=== PATIENT | female | born 1950 ===

== ENCOUNTER 2022-04-29 18:33 | Observation (INO) | payer OTHER ==
[~2022-04-29] VITALS: Ht 152.4 cm; Wt 57.6 kg
[2022-04-29] MEDS ORDERED: ZONI100 PO (18:55)
[2022-04-29] MEDS ORDERED: Depakote125 MG PO (18:55)
[2022-04-29] MEDS ORDERED: PROLIA60 MG/1 ML SQ (18:56)
[2022-04-29] MEDS ORDERED: TRAZ50 PO (18:56)
[2022-04-29 20:53] LABS: BASOPHILS ABSOLUTE AUTO 0.02 K/mm3 (0.00-0.23); BASOPHILS PERCENT AUTO 0 % (0-2); EOSINOPHILS ABSOLUTE AUTO 0.08 K/mm3 (0.00-0.68); EOSINOPHILS PERCENT AUTO 1 % (0-6); Hematocrit 43.3 % (33.0-51.0); Hemoglobin 14.9 g/dL (11.5-16.0); IMMATURE GRAN ABSOLUTE AUTO 0.02 K/mm3 (0.00-0.10); IMMATURE GRAN PERCENT AUTO 0 % (0-1); LYMPHOCYTES ABSOLUTE AUTO 2.04 K/mm3 (0.84-5.20); LYMPHOCYTES PERCENT AUTO 24 % (21-46); MONOCYTES ABSOLUTE AUTO 0.67 K/mm3 (0.16-1.47); MONOCYTES PERCENT AUTO 8 % (4-13); Mean Corpuscular HGB 31.6 pg (26.0-34.0); Mean Corpuscular HGB Conc 34.4 g/dL (31.5-36.5); Mean Corpuscular Volume 92 fL (80-100); Mean Platelet Volume 10.5 fL (9.1-12.4); NEUTROPHILS ABSOLUTE AUTO 5.62 K/mm3 (1.96-9.15); NEUTROPHILS PERCENT AUTO 67 % (41-73); Platelet Count 209 K/mm3 (150-400); RDW Coefficient Variation 13.8 % (11.7-14.2); RDW Standard Deviation 46.8 fL (35.1-46.3); Red Blood Cell Count 4.72 M/mm3 (3.80-5.20); White Blood Cell Count 8.45 K/mm3 (4.00-11.30)
[2022-04-29 21:11] LABS: Albumin, Blood 3.9 g/dL (3.4-5.0); Bilirubin, Total 0.2 mg/dL (0.1-1.0); Bun/Creatinine Ratio 24.3 (12.0-20.0); Calcium, Blood 9.2 mg/dL (8.5-10.1); Creatinine, Blood 0.95 mg/dL (0.40-1.00); Globulin, Blood 3.8 g/dL (2.2-4.0); Potassium, Blood 3.9 mmol/L (3.5-5.5); Total Protein, Blood 7.7 g/dL (6.4-8.2)
[2022-04-30 00:27] LABS: Source, Urine Clean Catch
[2022-04-30 00:29] LABS: Bilirubin, Urine Neg (Neg); Blood, Urine 1+ (Neg); Glucose Qualitative, Urine Neg (Neg); Ketones, Urine Neg (Neg); Leukocyte Esterase, Urine 1+ (Neg); Nitrite, Urine Neg (Neg); Protein, Urine 1+ (Neg); Urobilinogen, Urine NORM (Normal)
[2022-04-30 00:42] LABS: Appearance, Urine Hazy (Clear); Color, Urine Yellow (P-Yellow); Red Blood Cells, Urine 0-2 /hpf (0-2); Squamous Epithelial Cells Rare /hpf (Few); White Blood Cells, Urine 0-2 /hpf (0-5)
[2022-04-30 00:43] LABS: Amorphous Heavy (0-Heavy); Bacteria Few /hpf
[2022-04-30] MEDS ORDERED: ZONI100 PO (04:13)
[2022-04-30] MEDS ORDERED: VALP250 PO (04:14)
[2022-04-30 04:49] LABS: BASOPHILS ABSOLUTE AUTO 0.02 K/mm3 (0.00-0.23); BASOPHILS PERCENT AUTO 0 % (0-2); EOSINOPHILS ABSOLUTE AUTO 0.01 K/mm3 (0.00-0.68); EOSINOPHILS PERCENT AUTO 0 % (0-6); Hematocrit 41.8 % (33.0-51.0); Hemoglobin 14.1 g/dL (11.5-16.0); IMMATURE GRAN ABSOLUTE AUTO 0.03 K/mm3 (0.00-0.10); IMMATURE GRAN PERCENT AUTO 0 % (0-1); LYMPHOCYTES ABSOLUTE AUTO 2.05 K/mm3 (0.84-5.20); LYMPHOCYTES PERCENT AUTO 18 % (21-46); MONOCYTES PERCENT AUTO 7 % (4-13); Mean Corpuscular HGB 31.1 pg (26.0-34.0); Mean Corpuscular HGB Conc 33.7 g/dL (31.5-36.5); Mean Corpuscular Volume 92 fL (80-100); Mean Platelet Volume 10.5 fL (9.1-12.4); NEUTROPHILS ABSOLUTE AUTO 8.77 K/mm3 (1.96-9.15); NEUTROPHILS PERCENT AUTO 75 % (41-73); Platelet Count 219 K/mm3 (150-400); RDW Coefficient Variation 13.7 % (11.7-14.2); RDW Standard Deviation 46.2 fL (35.1-46.3); Red Blood Cell Count 4.54 M/mm3 (3.80-5.20); White Blood Cell Count 11.68 K/mm3 (4.00-11.30)
[2022-04-30 05:08] LABS: Albumin, Blood 3.5 g/dL (3.4-5.0); Bilirubin, Total 0.3 mg/dL (0.1-1.0); Calcium, Blood 8.4 mg/dL (8.5-10.1); Creatinine, Blood 0.74 mg/dL (0.40-1.00); Globulin, Blood 3.5 g/dL (2.2-4.0); Potassium, Blood 3.6 mmol/L (3.5-5.5)
--- NOTE | 2022-04-30 05:18 | NUR ---
SHIFT SUMMARY PATIENT ADMITTED FROM ER AT 0400. PATIENT SETTLED INTO ROOM. PATIENT ORIENTED TO CALL LIGHT AND TV CONTROL. FRIEND AT BEDSIDE FOR ADMISSION, HELPED THIS RN COMPLETE MED REC. ADMISSION COMPLETE. PATIENT IS A&O X4. PATIENT HAS TROUBLE FINDING WORDS WHEN COMPLEX QUESTIONS ARE ASKED, SUCH HOME MEDICATION DOSAGE. PATIENT VERY PLEASANT. TELE READING SR AT 87. PATIENT WENT TO SLEEP SHORTLY AFTER ADMISSION COMPLETE. PATIENT HAD WITNESSED SEIZURE OUTSIDE OF [facility] LASTING 2 MINTUES. PATIENT ALSO HAS WITNESSED SEIZURE IN ER LASTING 30 SECONDS. PATIENT HAS NO MEMORY OF SEIZURES.
[2022-04-30 09:39] LABS: Valproic Acid 116.7 ug/mL (50.0-100.0)
--- NOTE | 2022-04-30 13:10 | NUR ---
DISCHARGE MEDICATIONS AND FOLLOW UP INSTRUCTIONS GIVEN TO MICA. PT VOICED COMPLETE UNDERSTANDING AND HAS NO QUESTIONS AT THIS TIME. IV REMOVED WITH CATHETER INTACT. TELE REMOVED.
== END 2022-04-30 13:25 | disposition home or self-care (01) ==
LOC: ER 18:33 → MEDS 18:34
PROVIDERS: Family Medicine; Internal Medicine; Student in an Organized Health Care Education/Training Program; ADMIT Internal Medicine
DX: G40.909 Epilepsy, unspecified, not intractable, without status epilepticus (principal); M81.0 Age-related osteoporosis without current pathological fracture; I10 Essential (primary) hypertension; R51.9 Headache, unspecified; Z66 Do not resuscitate
CPT/HCPCS: 36415; 70450; 80053; 80164; 81001; 85025; 96372; 96374; 99285-25; A9270; G0378; J1650; J2250; J2765